=== PATIENT | male | born 1985 | race Caucasian/White ===

== ENCOUNTER 2022-02-05 19:00 | Emergency (ER) | payer OTHER ==
[2022-02-05 19:19] VITALS: BP 107/65; PULSE 68; RESP 16; TEMP 98.1; BMI 22.2
[2022-02-05] MEDS ORDERED: AMOX TR/POT CLAV 875MG/125MG TABLETS (FP) PO ONE (19:40)
[2022-02-05] MEDS ORDERED: RABIES VACCINE (PCEC)/PF 2.5 UNIT/VIAL IM ONE (19:40)
[2022-02-05] MEDS ORDERED: RABIES IMMUNE GLOBULIN 300 UNITS/1 ML VIAL IM ONE (19:40)
[2022-02-05] MEDS ORDERED: AMOX TR/POT CLAV 875MG/125MG TABLETS (FP) ONE (19:54)
== END 2022-02-05 20:14 | disposition home or self-care (01) ==
LOC: FER 19:00
PROC: 3E0234Z Introduction of Serum, Toxoid and Vaccine into Muscle, Percutaneous Approach (ICD-10-PCS; principal; 2022-02-05)
DX: S31.814A Puncture wound with foreign body of right buttock, initial encounter (principal); W54.0XXA Bitten by dog, initial encounter
CPT/HCPCS: 99284-25